=== PATIENT | male | born 1945 | race Caucasian/White ===

== ENCOUNTER → 2021-11-02 07:56 | Outpatient (BNVA) | payer MEDICARE, SELFPAY | PROVIDERS: Family Provider Family Medicine; PCP Family Medicine; Visit Provider Nurse Practitioner Family | DX: Z20.822 Contact with and (suspected) exposure to COVID-19 (principal); R51.9 Headache, unspecified | CPT/HCPCS: 87635 ==

== ENCOUNTER → 2023-04-06 14:39 | Outpatient (BNVA) | payer OTHER, MEDICARE, SELFPAY | PROVIDERS: Family Provider Family Medicine; PCP Family Medicine; Visit Provider Podiatrist Foot & Ankle Surgery | DX: L84 Corns and callosities (principal); M20.12 Hallux valgus (acquired), left foot; M20.42 Other hammer toe(s) (acquired), left foot | CPT/HCPCS: 73630; 99203 ==

== ENCOUNTER 2023-09-29 10:01 | Emergency (ER) | payer OTHER, SELFPAY ==
[2023-09-29 10:05] VITALS: BP 134/85; PULSE 105; RESP 17; TEMP 36.8; O2SAT 94; BMI 27.1
--- NOTE | 2023-09-29 10:07 | XR_ITS ---
WS: [id number] Portable AP semiupright chest, 09/29/2023 Clinical Data: ams Comparison: None. Findings: There is a minimal patchy opacity over the surface of the left diaphragm which may represen t atelectasis and/or minimal pneumonia. No nodules, masses or effusions are seen. The heart is slight ly enlarged. The pulmonary vascularity is not increased. No pneumonia or pneumothorax is seen. The ao rtic arch and descending thoracic aorta show tortuosity. Impression: 1. Minimal patchy left lower lobe pulmonary opacity which could represent atelectasis and/or pneumoni a. 2. Cardiomegaly and atherosclerosis.
--- NOTE | 2023-09-29 10:07 | CT_ITS ---
WS: [id number] CT scan of the head, 09/29/2023 Clinical Data: ams Comparison: None. DLP: 1635.[address] scans at [facility] use at least one of these dose optimization techniques: automated e xposure control; mA and/or kV adjustment per patient size (includes targeted exams where dose is matc hed to clinical indication); or iterative reconstruction. Findings: The ventricular system is normal without shift. There is dilatation of the ventricular system and the sulci. 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 No recent infarct or hemorrhage i s seen. There are no abnormal intracerebral masses. The cerebellum and brainstem are not remarkable. Bony windows of the skull and skull base show no fractures or erosions. The mastoid air cells, internet security specialist al auditory canals, sella turcica, intraorbital contents, and paranasal sinuses are unremarkable. Impression: 1. Negative for acute intracranial abnormality. 2. Mild cerebral atrophy.
--- NOTE | 2023-09-29 10:08 | ECG_ITS ---
[facility] Test Date: 2023-09-29 Pat Name: Carlo Dorman Department: Room: Gender: Male [employer] Maintainer: : [id number] Requested By: Kavon Najera Order Number: [id number] Micheal MD: Erik White M.D. 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 [id number]
--- NOTE | 2023-09-29 10:13 | ED_ITS ---
HPI - General Adult 2 General: Chief complaint: Altered Mental Status Stated complaint: several falls Time Seen by Provider: 09/29/23 10:04 Source: EMS Mode of arrival: EMS Limitations: altered mental status History of Present Illness: 78-year-old male is here from [facility] with history of severe dementia. Patient had a fall on the 12th per EMS I also spoke to patient's daughter he has had decline since then. Before he is ambulatory now he is not able to ambulate he has not had increasing confusion with severe weakness. He did hit his head when he fell. Patient is on hospice but when talking to her daughter she states she wants everything done at this point. He is extremely confused and unable to answer any questions. Review of Systems 2 General: Reports: ROS unobtainable due to mental status PFSH ED 2 PFSH: Social History Smoking and tobacco/nicotine status: former use of tobacco/nicotine Quit status (tobacco/nicotine): has quit using Year quit tobacco: 1970 Alcohol intake: never Physical Exam 2 Const: COMMON NORMALS: negative for patient oriented x3 HENMT: COMMON NORMALS: normocephalic HEAD & SCALP: normocephalic OTHER: Contusion noted to forehead Eye: COMMON NORMALS: Equal, round and reactive pupils present and EOMs intact bilaterally PUPIL: Yes Equal, round and reactive pupils present Neck/C-Spine: COMMON NORMALS: full ROM and supple Chest: COMMONS NORMALS: normal inspection of the chest and normal palpation of entire chest wall Resp: COMMON NORMALS: normal respiratory effort, No retractions, No use of accessory muscles and clear to auscultation bilaterally AUSCULTATION: clear to auscultation bilaterally Cardio: COMMON NORMALS: regular rate, regular rhythm and No murmurs present (Cardio) RATE: regular rate RHYTHM: regular rhythm GI: COMMON NORMALS: Normal to inspection, nondistended, normoactive bowel sounds present, Soft to palpation, non-tender and no masses PALPATION: Yes Soft to palpation Extremity: COMMON NORMALS: normal to inspection Neuro: COMMON NORMALS: negative for patient oriented x3 OTHER: extremely confused does not know his name but unable to answer any other questions or follow any commands he appears to have left-sided facial droop he is not able to ambulate Psych: COMMON NORMALS: cooperative; negative for mental status grossly normal and negative for Normal thought process present THOUGHT PROCESS: abnormal Skin: COMMON NORMALS: no rashes or lesions noted and no wounds GENERAL SKIN EXAM: no rashes or lesions noted Course 2 Vital Signs: Vital signs: Vital Signs Temperature 98.3 F 09/29/23 10:05 Pulse Rate 105 H 09/29/23 10:05 Respiratory Rate 18 09/29/23 10:54 Blood Pressure 134/85 09/29/23 10:54 Pulse Oximetry 94 09/29/23 10:05 Oxygen Delivery Me thod Room Air 09/29/23 10:05 MDM - General Adult Medical Decision Making Patient presents here with altered mental status he has severe dementia is likely declining head CT shows no hemorrhage I spoke to his daughter after imaging informed the results did speak to her about the plan and she agrees will [facility] to the [facility] on hosp[facility] at this time. Medical Records I reviewed the patient's medical records. Lab Data I reviewed the patient's lab results. 09/29/23 10:19 09/29/23 10:19 Laboratory Results WBC 11.90 10^3/uL (3.29-11.43) H 09/29/23 10:19 RBC 3.73 10^6/uL (3.85-5.65) L 09/29/23 10:19 Hgb 12.20 g/dL (11.27-16.99) 09/29/23 10:19 Hct 38.2 % (37-53) 09/29/23 10:19 MCV 102.4 fl (82-101) H 09/29/23 10:19 MCH 32.7 pg (27-33) 09/29/23 10:19 MCHC 31.9 g/dL (30-55) 09/29/23 10:19 RDW 12.2 % (12.1-15.1) 09/29/23 10:19 Plt Count 242 10^3/cmm (157-399) 09/29/23 10:19 MPV 9.9 fL (7.4-10.4) 09/29/23 10:19 Neut % (Auto) 81.8 % 09/29/23 10:19 Lymph % (Auto) 9.6 % 09/29/23 10:19 [place] % (Auto) 7.2 % 09/29/23 10:19 Eos % (Auto) 0.3 % 09/29/23 10:19 Baso % (Auto) 0.3 % 09/29/23 10:19 Neut # (Auto) 9.74 10^3/uL (1.8-7.7) H 09/29/23 10:19 Lymph # (Auto) 1.1 10^3/uL (0.8-4.8) 09/29/23 10:19 [place] # (Auto) 0.9 10^3/uL (0.2-0.9) 09/29/23 10:19 Eos # (Auto) 0.0 10^3/uL (0.0-0.8) 09/29/23 10:19 Baso # (Auto) 0.0 10^3/uL (0.0-0.1) 09/29/23 10:19 Nucleated RBC % (auto) 0 % 09/29/23 10:19 Nucleated RBCs # 0.0 /100WBC 09/29/23 10:19 PT 16.00 SECONDS (12.1-14.9) H 09/29/23 10:19 INR 1.24 (0.8-1.2) H 09/29/23 10:19 Sodium 139 mmol/L (136-145) 09/29/23 10:19 Potassium 3.9 mmol/L (3.5-5.1) 09/29/23 10:19 Chloride 103 mmol/L (98-107) 09/29/23 10:19 Carbon Dioxide 24 mmol/L (22-29) 09/29/23 10:19 Anion Gap 15.9 (5-19) 09/29/23 10:19 BUN 25 mg/dL (8-23) H 09/29/23 10:19 Creatinine 1.1 mg/dL (0.7-1.2) 09/29/23 10:19 GFR Calculation Not Reportable 09/29/23 10:19 Glucose 106 mg/dL (65-115) 09/29/23 10:19 Calculated Osmolality 293 mOsm/kg (285-295) 09/29/23 10:19 Calcium 9.1 mg/dL (8.5-10.5) 09/29/23 10:19 Total Bilirubin 0.4 mg/dL (0.15-1.2) 09/29/23 10:19 AST 44 U/L (0-40) H 09/29/23 10:19 ALT 24 U/L (0-41) 09/29/23 10:19 Alkaline Phosphatase 76 U/L (40-130) 09/29/23 10:19 Troponin T Baseline 21 ng/L (0-15) H 09/29/23 10:19 Total Protein 6.3 g/dL (6.6-8.7) L 09/29/23 10:19 Albumin 4.0 g/dL (3.5-5.2) 09/29/23 10:19 Globulin 2.3 g/dL (1.3-4.6) 09/29/23 10:19 Urine Color Yellow (Yellow) 09/29/23 11:24 Urine Appearance Hazy (CLEAR) A 09/29/23 11:24 Urine pH 5 (5-7) 09/29/23 11:24 Ur Specific [place] 1.020 (1.005-1.030) 09/29/23 11:24 Urine Protein Trace (Negative) 09/29/23 11:24 Urine Glucose (UA) Norm (Normal) 09/29/23 11:24 Urine Ketones Negative (Negative) 09/29/23 11:24 Urine Blood 3+ (Negative) H 09/29/23 11:24 Urine Nitrate Negative (Negative) 09/29/23 11:24 Urine Bilirubin 1+ (Negative) H 09/29/23 11:24 Urine Urobilinogen Norm mg/dL (Negative) 09/29/23 11:24 Ur Leukocyte Esterase Negative (Negative) 09/29/23 11:24 Urine RBC 0-4 /hpf (0-2) H 09/29/23 11:24 Urine WBC 15-25 /hpf (0-5) H 09/29/23 11:24 Ur Squamous Epith Cells 0-4 /hpf (0-5) H 09/29/23 11:24 Amorphous Sediment Not Reportable 09/29/23 11:24 Urine Bacteria Trace /hpf (NONE) 09/29/23 11:24 All radiology interpretation(s) finalized by discharge EKG Data EKG 1: I personally reviewed and interpreted this EKG as follows: EKG interpretation date: 09/29/23 EKG interpretation time: 10:15 Interpretation: nsr hr [address] or t wave abnormalities qrs 77 [id number] Discharge Plan Discharge Patient Disposition: Home Clinical Impression: Altered mental status Qualifiers: Altered mental status type: unspecified Qualified Code(s): R41.82 - Altered mental status, unspecified Condition: Stable Prescriptions: No Action latanoprost 0.005 % drops 1 drp ophthalmic (eye) QPM cetirizine 10 mg Tablet 10 mg PO DAILY medroxyprogesterone 5 mg tablet 5 mg PO TID loperamide 2 mg Tablet 4 mg PO Q6H PRN (Reason: Diarrhea) acetaminophen 500 mg Tablet 500 mg PO Q6H PRN (Reason: Pain) risperidone 2 mg tablet 2 mg PO BID prednisolone acetate 1 % drops,suspension 1 drp ophthalmic (eye) DAILY lorazepam 0.5 mg tablet 0.5 mg PO Q8H bisacodyl 10 mg Suppository 10 mg ND DAILY PRN (Reason: Constipation) brimonidine 0.2 % drops 1 drp ophthalmic (eye) BID zaleplon 5 mg Capsule 5 mg PO QPM timolol maleate 0.5 % drops 1 drp ophthalmic (eye) BID lamotrigine 100 mg tablet 100 mg PO BEDTIME Namenda 10 mg Tablet 10 mg PO QPM Artificial Tears (cmc) 1 % Drops 2 drp OPHTHALMIC (EYE) BID PRN (Reason: Dry Eyes) Discharge Orders: Discharge ED (Routine); Ordered 09/29/23 Ordered By: Kavon Najera Referrals: Feliz Cowan DO [Primary Care Provider] - 1-3 days Discharge Diet: Advance as tolerated Discharge Activity: Resume usual activity Patient Instructions: Altered Mental Status (ED) Coding Level of Care Code ED Android Framework Developer for Dayo Leonard
--- NOTE | 2023-09-29 10:22 | CT_ITS ---
WS: [id number] CT cervical spine. Additional two-dimensional coronal and sagittal reconstruction was performed. 09/15 Clinical Data: fall Comparison: None. DLP: 1635.[address] scans at [facility] use at least one of these dose optimization techniques: automated e xposure control; mA and/or kV adjustment per patient size (includes targeted exams where dose is matc hed to clinical indication); or iterative reconstruction. Findings: No compression fractures are seen. There is degenerative disc narrowing at C3-C4, C4-C5 and C5-C6. Th ere is anterior and posterior osteophyte formation from C3-C6. The spinous processes are in good alig nment. The odontoid is unremarkable. There is no prevertebral soft tissue swelling. The the lung apic es are not remarkable. There is minimal calcification at the level of the carotid bifurcations. Impression: 1. Negative for cervical spine fracture 2. Osteoarthritis and degenerative disc narrowing C3-C7.
[2023-09-29 10:28] LABS: Basophils % 0.3 %; Eosinophils % 0.3 %; Hematocrit 38.2 % (37-53); Lymphocytes # 1.1 10^3/uL (0.8-4.8); Lymphocytes % 9.6 %; Mean Corpuscular HGB Conc 31.9 g/dL (30-55); Mean Corpuscular Hemoglobin 32.7 pg (27-33); Mean Corpuscular Volume 102.4 fl (82-101); Mean Platelet Volume 9.9 fL (7.4-10.4); Monocytes # 0.9 10^3/uL (0.2-0.9); Monocytes % 7.2 %; Neutrophils # 9.74 10^3/uL (1.8-7.7); Neutrophils % 81.8 %; Nucleated Red Blood Cells % 0 %; Platelet Count 242 10^3/cmm (157-399); Red Blood Count 3.73 10^6/uL (3.85-5.65); Red Cell Distribution Width 12.2 % (12.1-15.1)
--- NOTE | 2023-09-29 10:45 | PC.PHAR ---
[facility]
[2023-09-29 10:46] LABS: Alanine Aminotransferase 24 U/L (0-41); Alkaline Phosphatase 76 U/L (40-130); Anion Gap 15.9 (5-19); Aspartate Amino Transferase 44 U/L (0-40); Blood Urea Nitrogen 25 mg/dL (8-23); Calcium 9.1 mg/dL (8.5-10.5); Carbon Dioxide 24 mmol/L (22-29); Chloride 103 mmol/L (98-107); Creatinine Clr Calc Pharmacy 66.9472; Globulin 2.3 g/dL (1.3-4.6); Glucose 106 mg/dL (65-115); Osmolality Calculated 293 mOsm/kg (285-295); Potassium 3.9 mmol/L (3.5-5.1); Sodium 139 mmol/L (136-145); Total Bilirubin 0.4 mg/dL (0.15-1.2); Total Protein 6.3 g/dL (6.6-8.7)
[2023-09-29 10:47] LABS: Troponin(5th) Baseline 21 ng/L (0-15)
[2023-09-29 10:50] LABS: INR 1.24 (0.8-1.2)
[2023-09-29 10:54] VITALS: BP 134/85; RESP 18
[2023-09-29 11:58] LABS: Add Urine Microscopic? YES; Bacteria Urine TRACE /hpf; Bilirubin Urine 1+ (Negative); Blood Urine 3+ (Negative); Glucose Urine UA Norm (Normal); Ketones Urine Negative (Negative); Leukocyte Esterase Urine Negative (Negative); Nitrate Urine Negative (Negative); Protein Urine Trace (Negative); RBC Urine 0-4 /hpf (0-2); Squamous Epithelial Cell Urine 0-4 /hpf (0-5); Urine Appearance Hazy (CLEAR); Urine Color Yellow (Yellow); Urobilinogen Urine Norm (Negative); WBC Urine 15-25 /hpf (0-5); pH Urine 5 (5-7)
[2023-09-29 11:59] LABS: Add Urine Culture? Yes
[2023-09-29 13:47] VITALS: PULSE 83; RESP 94
[2023-09-29 16:04] VITALS: PULSE 87; O2SAT 97
== END 2023-09-29 16:11 | disposition home or self-care (01) ==
PROVIDERS: Emergency Provider Emergency Medicine; PCP Family Medicine
DX: R41.82 Altered mental status, unspecified (principal); Z87.891 Personal history of nicotine dependence
CPT/HCPCS: 36415; 70450; 71045; 72125; 80053; 81001; 84484; 85025; 85610; 87086; 93005; 99285